=== PATIENT | female | born 1940 | race American Indian/Alaskan Native ===

== ENCOUNTER 2017-05-25 14:52 | Emergency (ER) | payer SELFPAY ==
[2017-05-25] MEDS ORDERED: CARDIZEM IV ONE ×3 (15:03→15:36)
[2017-05-25] MEDS ORDERED: NACL 0.9% 500 ML 500 ML IV ONE (15:07)
[2017-05-25] MEDS ORDERED: NACL 0.9% 500 ML 500 ML ONE (15:10)
[2017-05-25 16:08] LABS: Hematocrit 23.6 % (30.3-42.9); Hemoglobin 7.5 gm/dl (10.1-14.3); Mean Corpuscular HGB Conc 32 % (30-34); Platelet Count 279 K/mm3 (140-440); Red Blood Count 3.54 M/mm3 (3.65-5.03); White Blood Count 11.9 K/mm3 (4.5-11.0)
[2017-05-25 16:09] LABS: Mean Corpuscular Hemoglobin 21 pg (28-32); Mean Corpuscular Volume 67 fl (79-97); Red Cell Distribution Width 20.4 % (13.2-15.2)
[2017-05-25 16:14] LABS: INR 1.36 (0.87-1.13)
[2017-05-25 16:15] LABS: Partial Thromboplastin Time 31.4 Sec. (24.2-36.6)
[2017-05-25 16:17] LABS: Magnesium 1.6 mg/dL (1.7-2.3)
--- NOTE | 2017-05-25 16:18 | Emergency Department Report ---
ED General Adult HPI - General Chief complaint: Arrhythmia/Palpitations Stated complaint: SVT Time Seen by Provider: 05/25/17 15:08 Source: patient, EMS Mode of arrival: Stretcher Limitations: No Limitations - History of Present Illness Initial comments: The patient was transported to this facility via EMS. Paramedics told me on their arrival that they were called for an apparent diabetic ulcer or heel infection. When they obtain vital signs on the patient they found that her heart rate was 180. The thereby initiated an IV and gave the patient 6 mg of adenosine. I reviewed the strips with the paramedics which did indicate that the patient had a supraventricular tachycardia. It transiently resolved with 6 mg of adenosine but then recurred. The paramedics gave the patient 12 mg of adenosine and this was followed by a fairly prolonged period of bradycardia followed by normal sinus rhythm and then intermittent bouts of SVT. The patient presents to this facility with intermittent paroxysmal SVT. She was given 2.5 mg of diltiazem shortly after her arrival which did seem to maintain her normal sinus rhythm. The patient did not complain to me of chest pain pressure or tightness or shortness of breath. Her complaint was her right which has a large bullous lesion. She states that she has not been recently seen by a physician nor on antibiotics. This is despite being an insulin-dependent diabetic. She states that she has no primary care physician. Remarkably she states that she has been in this area for some time. She states that she is compliant with her "shots". She does not complain of recent fever or chills. She does admit that her legs have been swollen for some time. -: Gradual, days(s), week(s) Location: right (heel) Radiation: non-radiation (he'll) Quality: aching Consistency: intermittent Improves with: none Worsens with: none Associated Symptoms: denies other symptoms - Related Data Previous Rx's Medication Instructions Recorded Last Taken Type Docusate Sodium [Colace] 100 mg PO BID #60 capsule 12/13/15 Unknown Rx Ferrous Sulfate [Feosol 325 MG tab] 325 mg PO TID #90 tablet 12/13/15 Unknown Rx Allergies Allergy/AdvReac Type Severity Reaction Status Date / Time No Known Allergies Allergy Verified 01/26/15 12:44 ED Review of Systems ROS: Stated complaint: SVT Other details as noted in HPI Constitutional: denies: chills, fever Eyes: denies: eye pain, eye discharge, vision change ENT: denies: ear pain, throat pain Respiratory: denies: cough, shortness of breath, wheezing Cardiovascular: other (unaware of her tachycardia). denies: chest pain, palpitations Endocrine: no symptoms reported Gastrointestinal: denies: abdominal pain, nausea, diarrhea Genitourinary: denies: urgency, dysuria, discharge Musculoskeletal: as per HPI. denies: back pain, joint swelling, arthralgia Skin: denies: rash, lesions Neurological: denies: headache, weakness, paresthesias Psychiatric: denies: anxiety, depression Hematological/Lymphatic: denies: easy bleeding, easy bruising ED Past Medical Hx - Past Medical History Previous Medical History?: Yes Hx Hypertension: Yes Hx Heart Attack/AMI: No Hx Congestive Heart Failure: Yes Hx Diabetes: Yes Hx Liver Disease: No Hx Renal Disease: No Hx Arthritis: Yes Hx Seizures: No Hx Asthma: Yes (wheezing, triggers of dander and dust) Hx COPD: Yes Additional medical history: ANEMIA - Surgical History Past Surgical History?: Yes Additional Surgical History: HERNIA REPAIR - Social History Smoking Status: Never Smoker Substance Use Type: None - Medications Home Medications: Home Medications Medication Instructions Recorded Confirmed Last Taken Type Docusate Sodium [Colace] 100 mg PO BID #60 capsule 12/13/15 Unknown Rx Ferrous Sulfate [Feosol 325 MG tab] 325 mg PO TID #90 tablet 12/13/15 Unknown Rx ED Physical Exam - General Limitations: No Limitations General appearance: alert, in no apparent distress - Head Head exam: Present: atraumatic, normocephalic - Eye Eye exam: Present: normal appearance. Absent: scleral icterus - ENT ENT exam: Present: mucous membranes moist - Neck Neck exam: Present: normal inspection. Absent: tenderness, meningismus - Respiratory Respiratory exam: Present: normal lung sounds bilaterally. Absent: respiratory distress - Cardiovascular Cardiovascular Exam: Present: tachycardia. Absent: systolic murmur, diastolic murmur, rubs, gallop - GI/Abdominal GI/Abdominal exam: Present: soft, normal bowel sounds. Absent: distended, tenderness, guarding, rebound, rigid - Extremities Exam Extremities exam: Present: pedal edema (2+ leg edema bilaterally), other ( approximately 6 cm diameter bullous lesion non-deroofed the right heel. Generally both legs are edematous and somewhat warm.) - Back Exam Back exam: Present: normal inspection - Neurological Exam Neurological exam: Present: alert, oriented X3, CN II-XII intact. Absent: motor sensory deficit (no gross acute motor or sensory deficits) - Psychiatric Psychiatric exam: Present: normal affect, normal mood - Skin Skin exam: Present: warm, dry, intact, normal color. Absent: rash ED Course Vital Signs 05/25/17 05/25/17 05/25/17 14:53 15:02 15:50 Temperature 98.4 F Pulse Rate 164 H 164 H 156 H Respiratory 18 Rate Blood Pressure 117/55 117/55 116/56 O2 Sat by Pulse 96 Oximetry - Reevaluation(s) Reevaluation #1: The patient was given a low dose of diltiazem (2.5 mg) initially as her blood pressure was about 110 systolic. This was well tolerated and effective in maintaining mostly normal sinus rhythm for a while. However, patient did require a second bolus. Her laboratory database was ordered and pending. The nurse informed me that an irate family member (daughter) had called the hospital demanding that the patient be summarily sent to [facility] where her "doctor was waiting". I informed the nurse that we would certainly speak to the family member as soon as she arrived. The daughter did arrive in an irate and somewhat threatening condition. I explained to the daughter that the patient's hemoglobin did come back and was noted to be 7.5. Furthermore she was having recurrent bouts of SVT from 160-180. Her chemistries are yet pending. Her chest x-ray showed no nothing acute. Her 12- lead EKG obtained at the time after the initial bolus of diltiazem when she was in normal sinus rhythm with occasional super ventricular complexes but otherwise essentially normal EKG, normal axis and normal sinus rhythm. As soon as the daughter arrived, I returned to the room to reassess the patient. She was again noted to be in paroxysmal supraventricular tachycardia. I showed this to the daughter and the patient. I explained to them that further treatment was necessary prior to transfer. I additionally explained to her that she had a diabetic foot infection as well as a very low blood count. I explained that other laboratory tests were pending. I asked the daughter for the name of a doctor that I could call to transfer the patient. The daughter could identify no name of a physician whatsoever. The patient had previously told me that she did not have a doctor at all. I asked the daughter again about this. She stated that "all the doctors were waiting for her at [facility]". I explained to her that of course the patient would be seen in the emergency department by a physician should she arrived there. I explained to her the process of patient transfer and the requirement under the law to identify an accepting physician. In addition at this point, I could not certify that this patient was medically stable for transfer. Additionally, the daughter is refusing any additional medical stabilization at this hospital. Therefore, further treatment could not be rendered. I spoke to the patient herself. She was deemed to be mentally competent/with capacity to refuse further care and stabilization. I specifically showed her on her monitor that she was having paroxysmal supraventricular tachycardia and that this required further care and stabilization. In addition, I would need to review her pending laboratory testing to certify that she was stable for transfer as well as provide additional treatment for her tachycardia. I additionally explained to the patient that leaving AGAINST MEDICAL ADVICE could result in or disability en route to another hospital. This is not medically advised. The patient told me that she had "taken all this in". She stated that she understood the risks of leaving without additional treatment. Notwithstanding this, she is still refusing further medical care and stabilization. I spoke to the overhouse first line production supervisor on 2 occasions concerning this situation. We agreed that nothing further could be done to further stabilize the patient as they are refusing further care. They will be allowed to sign out AGAINST MEDICAL ADVICE which they have already done so at the time of this dictation. Additionally I told the daughter and the patient my name and that I would be happy to speak to any physician caring for the patient at [facility] in order to give them a report on what we have found so far. I did emphasize again to them that I could not certify that she was stable for transfer. I specifically advised them that removing the patient for transfer in a private vehicle to another hospital particularly with her cardiac instability is not recommended. I explained to them that I would have to have an accepting physician and reasonable medical stability before I can transfer the patient. They did not permit us to provide further care. They adamantly insisted on signing out AGAINST MEDICAL ADVICE and refused further care and stabilization. Being that both the patient and her daughter had adequate mental capacity to understand the risks of signing out AMA to include , they were allowed to sign out against medical officer. 05/25/17 17:16 ED Medical Decision Making - Lab Data Result diagrams: 05/25/17 15:34 05/25/17 15:34 Laboratory Results - last 24 hr 05/25/17 05/25/17 05/25/17 15:34 15:34 15:34 WBC 11.9 H RBC 3.54 L Hgb 7.5 L Hct 23.6 L MCV 67 L MCH 21 L MCHC 32 RDW 20.4 H Plt Count 279 Seg Neutrophils % Pear Picker PT 16.7 H INR 1.36 H APTT 31.4 VBG pH Ketones Quantitative Lactic Acid 1.10 Magnesium 05/25/17 05/25/17 05/25/17 15:34 15:34 15:34 WBC RBC Hgb Hct MCV MCH MCHC RDW Plt Count Seg Neutrophils % PT INR APTT VBG pH 7.335 Ketones Quantitative Negative Lactic Acid Magnesium 1.60 L Laboratory Results - last 24 hr 05/25/17 05/25/17 05/25/17 15:34 15:34 15:34 WBC 11.9 H RBC 3.54 L Hgb 7.5 L Hct 23.6 L MCV 67 L MCH 21 L MCHC 32 RDW 20.4 H Plt Count 279 Seg Neutrophils % Pear Picker PT 16.7 H INR 1.36 H APTT 31.4 VBG pH Sodium 145 Potassium 3.7 Chloride 107.0 Carbon Dioxide 22 Anion Gap 20 BUN 13 Creatinine 0.9 Estimated GFR > 60 BUN/Creatinine Ratio 14.44 Glucose 122 H Ketones Quantitative Lactic Acid Calcium 8.9 Magnesium Total Bilirubin 0.60 Direct Bilirubin 0.2 Indirect Bilirubin 0.4 AST 14 ALT 10 Alkaline Phosphatase 74 Troponin T 0.048 H NT-Pro-B Natriuret Pep Total Protein 7.4 Albumin 3.0 L Albumin/Globulin Ratio 0.7 TSH Free T4 05/25/17 05/25/17 05/25/17 15:34 15:34 15:34 WBC RBC Hgb Hct MCV MCH MCHC RDW Plt Count Seg Neutrophils % PT INR APTT VBG pH Sodium Potassium Chloride Carbon Dioxide Anion Gap BUN Creatinine Estimated GFR BUN/Creatinine Ratio Glucose Ketones Quantitative Lactic Acid 1.10 Calcium Magnesium 1.60 L Total Bilirubin Direct Bilirubin Indirect Bilirubin AST ALT Alkaline Phosphatase Troponin T NT-Pro-B Natriuret Pep 4483 H Total Protein Albumin Albumin/Globulin Ratio TSH 0.842 Free T4 2.01 H 05/25/17 05/25/17 15:34 15:34 WBC RBC Hgb Hct MCV MCH MCHC RDW Plt Count Seg Neutrophils % PT INR APTT VBG pH 7.335 Sodium Potassium Chloride Carbon Dioxide Anion Gap BUN Creatinine Estimated GFR BUN/Creatinine Ratio Glucose Ketones Quantitative Negative Lactic Acid Calcium Magnesium Total Bilirubin Direct Bilirubin Indirect Bilirubin AST ALT Alkaline Phosphatase Troponin T NT-Pro-B Natriuret Pep Total Protein Albumin Albumin/Globulin Ratio TSH Free T4 Critical Care Time: Yes Critical care time in (mins) excluding proc time.: 45 Critical care attestation.: If time is entered above; I have spent that time in minutes in the direct care of this critically ill patient, excluding procedure time. ED Disposition Clinical Impression: Paroxysmal SVT (supraventricular tachycardia), Diabetic foot infection, Leg edema Anemia Qualifiers: Anemia type: unspecified type Qualified Code(s): D64.9 - Anemia, unspecified Cardiomyopathy Qualifiers: Cardiomyopathy type: unspecified Qualified Code(s): I42.9 - Cardiomyopathy, unspecified Disposition: [id number] LEFT AGAINST MED ADVICE Is pt being admited?: No Does the pt Need Aspirin: No Condition: Stable Instructions: Diabetes Mellitus Type 2 in Adults (ED) Referrals: PRIMARY CARE, [Primary Care Provider] - 3-5 Days Time of Disposition: 17:38
[2017-05-25 16:22] LABS: Alanine Aminotransferase 10 units/L (7-56); Albumin/Globulin Ratio 0.7 %; Alkaline Phosphatase 74 units/L (35-129); Anion Gap 20 mmol/L; BUN/Creatinine Ratio 14.44; Bilirubin,Direct 0.2 mg/dL (0-0.2); Bilirubin,Indirect 0.4 mg/dL; Blood Urea Nitrogen 13 mg/dL (7-17); Calcium 8.9 mg/dL (8.4-10.2); Carbon Dioxide 22 mmol/L (22-30); Glucose 122 mg/dL (65-100); Potassium 3.7 mmol/L (3.6-5.0); Sodium 145 mmol/L (137-145); Total Protein 7.4 g/dL (6.3-8.2)
[2017-05-25 16:43] LABS: Basophils % (Manual) 0 % (0.0-1.8); Blastocytes % (Manual) 0 %; Eosinophils % (Manual) 0 % (0.0-4.3)
[2017-05-25 16:44] LABS: Anisocytosis 1+; Microcytosis 1+; Polychromasia Few
[2017-05-25 16:45] LABS: Diff Status Complete; Hypochromasia 1+; Platelet Estimate Consistent w Auto; Target Cells Few
[2017-05-25 17:31] LABS: Cholesterol 168 mg/dL (50-199); HDL Cholesterol 51 mg/dL (40-59); LDL Cholesterol,Direct 104 mg/dL (50-130); Triglycerides 69 mg/dL (2-149)
[2017-05-25 17:49] VITALS: BP 121/47
--- NOTE | 2017-05-25 18:02 | XRay Report ---
FINAL REPORT EXAM: XR CHEST 1V AP HISTORY: sob TECHNIQUE: upright single view chest PRIORS: None. FINDINGS: Cardiac and mediastinal contours are unremarkable. No focal pulmonary infiltrate is identified. No pleural fluid collection seen. Pulmonary vasculature is unremarkable. There is mild scoliosis of the thoracic spine convex right. Degenerative change of both shoulders noted. IMPRESSION: Scoliosis thoracic spine convex right Degenerative changes are noted both shoulders with joint space narrowing No acute pulmonary findings
== END 2017-05-25 17:05 | disposition left against medical advice (07) ==
LOC: ED 14:52
DX: I42.9 Cardiomyopathy, unspecified (principal); D64.9 Anemia, unspecified; I47.1 Supraventricular tachycardia; E11.621 Type 2 diabetes mellitus with foot ulcer; I10 Essential (primary) hypertension; J45.909 Unspecified asthma, uncomplicated; Z79.4 Long term (current) use of insulin
CPT/HCPCS: 36415; 71010; 80048; 80061; 80074; 82010; 82140; 82805; 83735; 83880; 84439; 84443; 84484; 85007; 85025; 85610; 85730; 93005; 93010; 96361; 96374; 96376; 99291; J7040